=== PATIENT | female | born 1960 | race Caucasian/White ===

== ENCOUNTER 2018-01-02 12:33 | Day surgery (SDC) | payer OTHER ==
[2018-01-02] MEDS ORDERED: PROPOFOL 20 ML (15:59)
== END 2018-01-02 18:32 | disposition home or self-care (01) ==
LOC: GIL 12:33
DX: K20.9 Esophagitis, unspecified (principal); K29.70 Gastritis, unspecified, without bleeding; E11.9 Type 2 diabetes mellitus without complications; I10 Essential (primary) hypertension
CPT/HCPCS: 43239; 88305